=== PATIENT | female | born 1970 | race Native Hawaiian/Other Pacific Islander ===

== ENCOUNTER 2023-12-26 12:38 | Inpatient (IN) | payer OTHER ==
--- NOTE | 2023-12-26 13:42 | RAD REPORT ---
EXAM DESCRIPTION: RAD - Chest Single View - 12/26/2023 1:20 pm CLINICAL HISTORY: COPD;Cough;Dyspnea Chest pain. COMPARISON: <Comparisons> FINDINGS: Portable technique limits examination quality. Moderate pulmonary edema with small moderate left pleural effusion. The heart is increased in size si gnificantly. No displaced fractures. IMPRESSION: Moderate CHF versus volume overload suspected.
[2023-12-26] MEDS ORDERED: NA CHLORIDE 0.9% 500 ML ONE (14:12)
[2023-12-26] MEDS ORDERED: METHYLPREDNISOLONE 125 MG INJ ONE (14:12)
[2023-12-26] MEDS ORDERED: CEFTRIAXONE 1000 MG/VIAL ONE (14:12)
[2023-12-26 14:50] LABS: Absolute Lymphocytes (CBC) 0.9 K/uL (0.7-4.9); Absolute Monocytes 1.1 K/uL (0.1-1.3); Absolute Neutrophil 12.7 K/uL (1.8-8.0); Basophils % 0.2 % (0-1.3); Eosinophils % 0.1 % (0-4.4); Hematocrit 34.5 % (36.0-45.0); Hemoglobin 10.6 g/dL (12.0-15.0); Lymphocytes % 6.1 % (15.3-44.8); MCHC 30.8 g/dL (32.0-36.0); MCV 87.7 fL (80-100); Monocytes % 7.2 % (3.3-12.3); Neutrophils % 86.4 % (41.7-73.7); Nucleated RBC Absolute Count 0.2 (0-0); Nucleated Red Blood Cells % 1.1 % (0-0); Platelets 218 thou/uL (152-406); RBC Red Blood Cell Count 3.93 M/uL (3.86-4.86); Red Cell Distribution Width 18.8 % (12.1-15.2)
[2023-12-26] MEDS ORDERED: NA CHLORIDE 0.9% 250 ML ONE (14:51)
[2023-12-26] MEDS ORDERED: AZITHROMYCIN 500 MG INJ IVPB ONE (14:51)
--- NOTE | 2023-12-26 15:35 | ER ---
Nurse's Notes [facility] Name: Anna Claros Age: 53 yrs Sex: Female : 1970 Arrival Date: 12/26/2023 Time: 12:38 Bed 15 Private MD: Diagnosis: Heart failure, unspecified;Sepsis, unspecified organism Presentation: 12/25 12:54 Chief complaint: EMS states: difficulty breathing. Coronavirus screen: At this time, kj2 the client does not indicate any symptoms associated with coronavirus-19. Ebola Screen: No symptoms or risks identified at this time. Initial Sepsis Screen: Does the patient meet any 2 criteria? No. Patient's initial sepsis screen is negative. Initial Sepsis Screen: Does the patient have a suspected source of infection? No. Patient's initial sepsis screen is negative. Risk Assessment: Do you want to hurt yourself or someone else? Patient reports no desire to harm self or others. Onset of symptoms was December 26, 2023. Care prior to arrival: Medication(s) given: Albuterol Neb Atrovent Neb x 1. 12:54 Method Of Arrival: EMS: [facility] kj2 12:54 Acuity: FORREST 3 kj2 Triage Assessment: 12:59 General: Appears in no apparent distress. uncomfortable, Behavior is calm, cooperative. kj2 Pain: Complains of pain in headache Pain currently is 4 out of 10 on a pain scale. Neuro: Level of Consciousness is awake, alert, obeys commands, Oriented to person, place, situation. Cardiovascular: Capillary refill < 3 seconds. Respiratory: Reports shortness of breath at rest since for 2 weeks Airway Respiratory effort is labored. : Reports inability to void, since yesterday. Derm: skin on feet very dry and peeling. Historical: - Allergies: 13:05 No Known Allergies; kj2 - PMHx: 13:05 Chronic obstructive lung disease; Congestive heart failure; Atrial fibrillation; kj2 - Immunization history:: Adult Immunizations unknown. - Infectious Disease History:: Denies. - Social history:: Smoking status: Patient denies any tobacco usage or history of. - Code Status:: Full code. Screenin:06 [facility] ED Fall Risk Assessment (Adult) History of falling in the last 3 months, kj2 including since admission No falls in past 3 months (0 pts) Confusion or Disorientation No (0 pts) Intoxicated or Sedated No (0 pts) Impaired Gait Yes (1 pt) Mobility Assist Device Used Yes (1 pt) Altered Elimination Yes (1 pt) Score/Fall Risk Level 3 or more points = High Risk Maintained a safe environment, Educated pt \\T\\ family on fall prevention, incl call for assistance when getting out of bed, Hourly rounding (assess needs \\T\\ fall precautionary measures) done. Abuse screen: Denies threats or abuse. Denies injuries from another. Nutritional screening: No deficits noted. Tuberculosis screening: No symptoms or risk factors identified. Assessment: 13:17 General: see triage assessment. kj2 Vital Signs: 12:54 BP 124 / 112; Pulse 59; Resp 20; Temp 98.6; Pulse Ox 90% on 4 lpm NC; Weight 199.58 kg; kj2 12:58 BP 124 / 112; Pulse 59; Resp 20; Temp 98.6; Pulse Ox 90% on 4 lpm NC; Weight 199.58 kg; kj2 14:00 BP 93 / 45; Pulse 72; Resp 18; Pulse Ox 82% on NC; kj2 15:00 BP 101 / 55; Pulse 72; Resp 18; Pulse Ox 90% on 4 lpm NC; kj2 16:00 BP 92 / 64; Pulse 71; Resp 20; Pulse Ox 86% on 4 lpm NC; kj2 Juana Coma Score: 19:10 Eye Response: spontaneous(4). Motor Response: obeys commands(6). Verbal Response: rg5 oriented(5). Total: 15. ED Course: 12:39 Patient arrived in ED. ec2 12:39 Kash Sanchez MD is Attending Physician. ec2 12:41 Rosalba Terrell, GLENNA is Primary Nurse. kj2 12:58 Triage completed. kj2 13:08 Patient has correct armband on for positive identification. Bed in low position. Call kj2 light in reach. Provided Education on: call light, fall precautions. 13:09 Arm band placed on. kj2 13:09 No provider procedures requiring assistance completed. kj2 13:19 Initial lab(s) drawn, by me, sent to lab. Inserted saline lock: 20 gauge in right cm10 forearm, using aseptic technique. Flushed with 10 mL NS. 13:19 Basic Metabolic Panel Sent. cm10 13:19 CBC with Diff Sent. cm10 13:19 NT PRO-BNP Sent. cm10 13:19 Lactate w/ 2H reflex if indic. Sent. cm10 13:22 XRAY Chest (1 view) In Process Unspecified. EDMS 13:33 EKG done, by ED staff, reviewed by Kash Sanchez MD. kj2 15:34 Hetal Teran MD is Hospitalizing Provider. ec2 16:38 638 CM met with patient at bedside in ED exam room . Patient identified by name and ane . Demographic sheet not filled out to completion. CM obtained as much information as possible. Patient states she lives with her brother Chip Claros in a "mother in law type quarters". Patient reports using a walker and an assistive recliner that helps her stand. No HH, home oxygen or other medical services at this time. No MPOA in place at this tie. Sonido Claros' preferred discharge plan is to return home to live with her brother upon discharge. Patient reports Chip or his Mikey may be able to transport her home when she is discharged. CM team will continue to follow and coordinate care. 17:55 bariatric bed ordered,confirmation number [id number]. will be delivered to ER.. bd 19:11 Resting quietly. Awaiting bed assignment. rg5 19:11 Report given to GLENNA Julien. cm10 19:11 Client placed on continuous cardiac and pulse oximetry monitoring. NIBP monitoring rg5 applied. wage and salary administrator on. Pulse ox on. NIBP on. 19:11 Patient admitted, IV remains in place. intact, No redness/swelling at site. rg5 Administered Medications: 14:33 Drug: MethylPrednisoLONE IVP 125 mg IVP once Route: IVP; Site: right forearm; cm10 14:44 Follow up: Response: No adverse reaction cm10 14:33 Drug: Rocephin IV 1 grams IV at calculated rate once; Given slow IV push per pharmacy cm10 instructions Route: IV; Rate: calculated rate; Site: right forearm; 14:44 Follow up: Response: No adverse reaction; IV Status: Completed infusion; IV Intake: [id number] 16:17 Follow up: IV Status: Completed infusion; IV Intake: 10ml kj2 16:17 Follow up: Response: No adverse reaction kj2 14:33 Drug: NS 0.9% IV 500 ml IV at bolus once Route: IV; Rate: bolus; Site: right forearm; cm10 15:04 Follow up: Response: No adverse reaction; IV Status: Completed infusion; IV Intake: cm10 500ml 16:14 Follow up: IV Status: Completed infusion; IV Intake: 500ml kj2 15:04 Drug: AZITHromycin IVPB 500 mg IVPB once over 1 hrs; (mix in 250 mL NS) Route: IVPB; cm10 Infused Over: 1 hrs; Site: right forearm; 16:16 Follow up: Response: No adverse reaction; IV Status: Completed infusion; IV Intake: kj2 250ml 16:14 Drug: Furosemide IVP 40 mg IVP once; give over 2 minutes Route: IVP; Site: right kj2 forearm; 17:15 Follow up: Response: No adverse reaction kj2 Medication: 13:08 VIS not applicable for this client. kj2 Intake: 14:44 IV: 10ml; Total: 10ml. cm10 15:04 IV: 500ml; Total: 510ml. cm10 16:14 IV: 500ml; Total: 1010ml. kj2 16:16 IV: 250ml; Total: 1260ml. kj2 16:17 IV: 10ml; Total: 1270ml. kj2 Outcome: 15:35 Decision to Hospitalize by Provider. ec2 19:11 Admitted to ER Hold. Please see [facility] for further documentation. rg5 19:11 Condition: stable 12/26 01:54 Patient left the ED. rg5 Signatures: Dispatcher [employer] EDHuong Steven Clarissa, RN RN cm10 Kash Sanchez MD MD ec2 Wily Dillon RN RN rg5 Rosalba Terrell RN RN kj2 Sweta Gruber RN RN ane
--- NOTE | 2023-12-26 15:35 | EDPHYS ---
Physician Documentation [facility] Name: Anna Claros Age: 53 yrs Sex: Female : 1970 Arrival Date: 12/26/2023 Time: 12:38 Bed 15 Private MD: ED Physician Kash Sanchez HPI: 12/25 12:40 This 53 yrs old Female presents to ER via Unassigned with complaints of sob. ec2 12:40 Patient arrives today for evaluation of shortness of breath. Patient with worsening ec2 shortness of breath ongoing for multiple weeks. Patient with cough and congestion. Patient reports no fevers or chills, does have a history of CHF as well as COPD. Patient is on Lasix, states that she has not been taking any inhalers.. Historical: - Allergies: 13:05 No Known Allergies; kj2 - PMHx: 13:05 Chronic obstructive lung disease; Congestive heart failure; Atrial fibrillation; kj2 - Immunization history:: Adult Immunizations unknown. - Infectious Disease History:: Denies. - Social history:: Smoking status: Patient denies any tobacco usage or history of. - Code Status:: Full code. ROS: 12:40 Constitutional: as per hpi ec2 Exam: 12:40 Constitutional: GEN: NAD Head: atraumatic Eyes: EOMI Ears: External ears are ec2 normal. CV: regular rate, bilateral lower extremity edema with chronic skin changes noted. LUNGS: no respiratory distress ABD: non-distended SKIN: no evidence of rashes MSK: no evidence of trauma Vital Signs: 12:54 BP 124 / 112; Pulse 59; Resp 20; Temp 98.6; Pulse Ox 90% on 4 lpm NC; Weight 199.58 kg; kj2 12:58 BP 124 / 112; Pulse 59; Resp 20; Temp 98.6; Pulse Ox 90% on 4 lpm NC; Weight 199.58 kg; kj2 14:00 BP 93 / 45; Pulse 72; Resp 18; Pulse Ox 82% on NC; kj2 15:00 BP 101 / 55; Pulse 72; Resp 18; Pulse Ox 90% on 4 lpm NC; kj2 16:00 BP 92 / 64; Pulse 71; Resp 20; Pulse Ox 86% on 4 lpm NC; kj2 Juana Coma Score: 19:10 Eye Response: spontaneous(4). Motor Response: obeys commands(6). Verbal Response: rg5 oriented(5). Total: 15. MDM: 12:39 Patient medically screened. ec2 12:40 Data reviewed: vital signs. ED course: Patient arrives today for evaluation of ec2 shortness of breath. Examination remarkable for nontoxic individual with lower extremity edema. Will obtain lab work, EKG, chest x-ray. Differential include processes such as COPD exacerbation, CHF exacerbation, viral infection. 13:28 ED course: EKG independently reviewed and interpreted by me, shows atrial fibrillation, ec2 rate of 70, no acute ST segment elevations, right bundle branch block noted.. 15:24 ED course: Metabolic profile shows renal dysfunction with a creatinine of 2.66, ec2 markedly elevated BNP at 21,000.. 15:27 ED course: Patient did have some hypotensive blood pressures however seems to have ec2 improved with small fluid challenge, my concern ultimately is for volume overload and do not want to aggressively resuscitate her due to concern for potentiating worsening respiratory distress. Will admit for careful diuresis.. 15:34 ED course: Sepsis reassessment complete.. ec2 12/25 12:40 Order name: Basic Metabolic Panel; Complete Time: 15:24 ec2 12/25 12:40 Order name: CBC with Diff ec2 12/25 12:40 Order name: NT PRO-BNP; Complete Time: 15:24 ec2 12/25 12:42 Order name: Lactate w/ 2H reflex if indic.; Complete Time: 14:20 ec2 12/25 12:42 Order name: Blood Culture Adult (2) ec2 12/25 14:54 Order name: CBC Smear Scan EDMS 12/25 15:56 Order name: Ghost Lactate-NO COLLECT Timer EDMS 12/25 16:51 Order name: Lactate Sepsis 2 HR Follow-up EDMS 12/25 18:29 Order name: ABG Arterial Blood Gas EDMS 12/25 18:34 Order name: Ammonia EDMS 12/25 18:34 Order name: Liver (Hepatic) Function EDMS 12/25 18:43 Order name: CBC with Automated Diff EDMS 12/25 18:43 Order name: CBC with Automated Diff EDMS 12/25 18:43 Order name: Comprehensive Metabolic Panel EDMS 12/25 18:43 Order name: Comprehensive Metabolic Panel EDMS 12/25 18:43 Order name: Lactate w/ 2H reflex if indic. EDMS 12/25 18:43 Order name: Lactate w/ 2H reflex if indic. EDMS 12/25 18:43 Order name: Magnesium EDMS 12/25 18:43 Order name: Magnesium EDMS 12/25 18:43 Order name: NT PRO-BNP EDMS 12/25 18:43 Order name: NT PRO-BNP EDMS 12/25 18:43 Order name: Phosphorus EDMS 12/25 18:43 Order name: Phosphorus EDMS 12/25 18:43 Order name: Protime (+INR) EDMS 12/25 18:43 Order name: Protime (+INR) EDMS 12/25 18:43 Order name: PTT, Activated Partial Thromb EDMS 12/25 18:43 Order name: PTT, Activated Partial Thromb EDMS 12/25 18:43 Order name: T4 Free EDMS 12/25 18:43 Order name: T4 Free EDMS 12/25 18:43 Order name: Thyroid Stimulating Hormone EDMS 12/25 18:43 Order name: Thyroid Stimulating Hormone EDMS 12/25 18:43 Order name: Troponin High Sensitivity EDMS 12/25 18:43 Order name: Troponin High Sensitivity EDMS 12/25 18:43 Order name: Troponin High Sensitivity EDMS 12/25 12:40 Order name: XRAY Chest (1 view); Complete Time: 13:43 ec2 12/25 18:43 Order name: Echo with Doppler EDMS 12/25 18:43 Order name: CONS Physician Consult EDMS 12/25 18:44 Order name: CONS Physician Consult EDMS 12/25 12:40 Order name: Cardiac monitoring; Complete Time: 20:39 ec2 12/25 12:40 Order name: EKG - Nurse/Tech; Complete Time: 13:33 ec2 12/25 12:40 Order name: IV Saline Lock; Complete Time: 13:19 ec2 12/25 12:40 Order name: Labs collected and sent; Complete Time: 13:19 ec2 12/25 12:40 Order name: O2 Per Protocol; Complete Time: 13:19 ec2 12/25 12:40 Order name: O2 Sat Monitoring; Complete Time: 13:19 ec2 12/25 13:29 Order name: Labs - recollect needed: recollect green and purple top; Complete Time: bd 14:33 Administered Medications: 14:33 Drug: MethylPrednisoLONE IVP 125 mg IVP once Route: IVP; Site: right forearm; cm10 14:44 Follow up: Response: No adverse reaction cm10 14:33 Drug: Rocephin IV 1 grams IV at calculated rate once; Given slow IV push per pharmacy cm10 instructions Route: IV; Rate: calculated rate; Site: right forearm; 14:44 Follow up: Response: No adverse reaction; IV Status: Completed infusion; IV Intake: [id number] 16:17 Follow up: IV Status: Completed infusion; IV Intake: 10ml kj2 16:17 Follow up: Response: No adverse reaction kj2 14:33 Drug: NS 0.9% IV 500 ml IV at bolus once Route: IV; Rate: bolus; Site: right forearm; cm10 15:04 Follow up: Response: No adverse reaction; IV Status: Completed infusion; IV Intake: cm10 500ml 16:14 Follow up: IV Status: Completed infusion; IV Intake: 500ml kj2 15:04 Drug: AZITHromycin IVPB 500 mg IVPB once over 1 hrs; (mix in 250 mL NS) Route: IVPB; cm10 Infused Over: 1 hrs; Site: right forearm; 16:16 Follow up: Response: No adverse reaction; IV Status: Completed infusion; IV Intake: kj2 250ml 16:14 Drug: Furosemide IVP 40 mg IVP once; give over 2 minutes Route: IVP; Site: right kj2 forearm; 17:15 Follow up: Response: No adverse reaction kj2 Disposition Summary: 12/26/23 15:35 Hospitalization Ordered Notes: Hospitalization Status: Inpatient Admission ec2 Provider: Hetal Teran ec2 Condition: Stable ec2 Problem: new ec2 Symptoms: have improved ec2 Bed/Room Type: Standard ec2 Location: Intensive Care Unit(12/26/23 23:02) Room Assignment: 7-(12/26/23 23:02) Diagnosis - Heart failure, unspecified ec2 - Sepsis, unspecified organism ec2 Forms: - Medication Reconciliation Form ec2 - SBAR form ec2 - Leadership Thank You Letter ec2 Critical care time excluding procedures: 15:34 Critical care time: Bedside Care: 30 minutes, Consultation: 5 minutes. Total time: 35 ec2 minutes Signatures: Dispatcher [employer] EDHuong Steven Kimberly, RN RN kl Ericka Alcazar RN RN cm10 Kash Sanchez MD MD ec2 Rosalba Terrell RN RN kj2 Corrections: (The following items were deleted from the chart) 23:02 15:35 Telemetry/MedSurg (Inpatient) 2 23:02 15:35 ec2
[2023-12-26] MEDS ORDERED: FUROSEMIDE 40 MG/4 ML VIAL ONE (15:48)
[2023-12-26 16:36] LABS: Blood Morphology Comment NOTED (NOT SEEN); Platelet Estimate ADEQ; Polychromasia 1+; White Blood Cell Scan OK (OK)
[2023-12-26] MEDS ORDERED: ACETAMINOPHEN 500 MG TAB PO PRN (18:33)
[2023-12-26] MEDS ORDERED: ONDANSETRON 4 MG/2 ML VIAL IV PRN (18:33)
--- NOTE | 2023-12-26 18:42 | P.HP ---
Certification for Inpatient Patient admitted to: Inpatient With expected LOS: >2 Midnights Patient will require the following post-hospital care: None Practitioner: I am a practitioner with admitting privileges, knowledge of patient current condition, hospital course, and medical plan of care. Services: Services provided to patient in accordance with Admission requirements found in Title 42 Section 412.3 of the Code of Federal Regulations Patient History Date of Service: 12/26/23 Reason for admission: Altered mental status; History of Present Illness: Patient is a 53-year-old female who comes from home who states she has been sick for the last week. She has a history of atrial fibrillation and she has been on amiodarone. She is not really able to give me much of her history as she is very somnolent. Patient is morbidly obese and she lives at home with her son who is her main ortho tech. Patient states she gets around with a walker but oth er than that she is really not able to do much of anything for herself. She came into the ER hypotensive and very somnolent. ABGs were performed and she was hypercapnic. Patient was severely hypotensive with a blood pressure of 90s over 60s. Patient's feet are dusky as she has tinea pedis and possibly onychomycosis. Patient is very debilitated and I am not really sure how she is able to care for herself. At this time, patient will need to be admitted. Patient has hypoxic and I would anticipate she has severe pulmonary hypertension. She also has elevated troponin and BNP. Will try to diurese her but with her blood pressure being so low we will need to do this very gently. At this time, patient will be admitted to the hospital for further evaluation. Allergies No Known Allergies Allergy (Unverified 12/26/23 20:44) Home Medications: Amiodarone HCl [Cordarone Tab] 200 mg PO BID 12/27/23 Furosemide [Lasix] 40 mg PO BID 12/27/23 Levothyroxine [Synthroid] 50 mcg PO [id number] 12/27/23 Lisinopril [Zestril] 5 mg PO DAILY 12/27/23 Metoprolol Succinate [Toprol Xl] 25 mg PO DAILY 12/27/23 Potassium Chloride 20 meq PO DAILY 12/27/23 Sertraline [Zoloft] 100 mg PO DAILY 12/27/23 - Past Medical/Surgical History -: Hypothyroidism -: Hypertension -: Depression -: Atrial fibrillation Past Surgical History: Unable to obtain - Family History Father Family History: Reviewed- Non-Contributory - Social History Smoking Status: Former smoker Alcohol use: No CD- Drugs: No Review of Systems 10-point ROS is otherwise unremarkable Physical Examination - Vital Signs Temperature: 98 F Blood Pressure: 90/50 Pulse: 80 Respirations: 18 Pulse Ox (%): 95 - Physical Exam General: Alert, In no apparent distress, Confused, Obese HEENT: Atraumatic, PERRLA, Mucous membr. moist/pink, EOMI, Sclerae nonicteric Neck: Supple, 2+ carotid pulse no bruit, No LAD, Without JVD or thyroid abnormality Respiratory: Clear to auscultation bilaterally, Normal air movement Cardiovascular: Regular rate/rhythm, Normal S1 S2, Systolic murmur Gastrointestinal: Normal bowel sounds, Soft and benign, Non-distended, No tenderness Musculoskeletal: No clubbing, No swelling, No tenderness Integumentary: Skin breakdown, Skin lesion, Tenderness/swelling, Erythema Neurological: Normal tone, Sensation intact, Cranial nerves 3-12 intact, Normal affect, Abnormal gait, Abnormal speech, Abnormal strength Lymphatics: No axilla or inguinal lymphadenopathy - Studies Laboratory Data (last 24 hrs) 12/26/23 12/26/23 14:40 14:40 WBC 14.70 H Hgb 10.6 L Hct 34.5 L Plt Count 218 Sodium 133 L Potassium 4.0 BUN 36 H Creatinine 2.66 H Glucose 105 Assessment & Plan - Problems (Diagnosis) (1) Hypercapnic respiratory failure Current Visit: Yes Status: Acute (2) Acute CHF Current Visit: Yes Status: Acute (3) Atrial fibrillation Current Visit: Yes Status: Acute (4) Morbid obesity with BMI of 70 and over, adult Current Visit: Yes Status: Acute (5) Tinea pedis Current Visit: Yes Status: Acute (6) Onychomycosis Current Visit: Yes Status: Acute (7) Hypotensive episode Current Visit: Yes Status: Acute - Plan Plan: 1. Hypercapnic respiratory failure; continue with BiPAP support. Repeat ABGs. Pulmonary consultation. Patient appears to have obesity hypoventilation syndrome which is poorly controlled. With her BMI being greater than 70 and I believe this been uncontrolled for quite a while. She probably has pulmonary hypertension keeping her hypoxic. Continue with BiPAP support and will alternate with high flow as necessary. 2. Acute CHF exacerbation; most likely systolic dysfunction. Will get echocardiogram. Patient may be in cardiogenic shock. Will monitor her hemodynamics closely. Cardiology consultation. BNP is elevated and troponin is elevated. Patient denies any chest pain. She most likely has type II myocardial infarction as she had no EKG changes. Patient will be admitted for gentle diuresing as tolerated. Patient may need inotropic support. Consult cardiology and get their input. 3. Morbid obesity; patient weight is most likely on a compromise for long-term health. Her BMI is greater than 70. Mortality rate is very high. Unless substantial diet and exercise change as well as bariatric follow-up patient's long-term prognosis is very poor 4. Chronic kidney disease; patient with elevated creatinine. Will consult nephrology. Possible cardiorenal syndrome. Will need to increase perfusion at this time. Patient may need inotropic support. 5. Discharge Plan: Home Plan to discharge in: Greater than 2 days - Advance Directives Does patient have a Living Will: No Does patient have a Durable POA for Healthcare: No - Code Status/Comfort Care Code Status Assessed: Yes Code Status: Full Code Critical Care: Yes Time Spent Managing PTS Care (In Minutes): 50
[2023-12-26 19:17] LABS: Albumin 2.3 g/dL (3.4-5.0); Albumin/Globulin Ratio 0.4 (1.1-1.8); Bilirubin Direct 0.7 mg/dL (0-0.2); Bilirubin Indirect, Calculated 0.4 mg/dL (0.2-0.8); Bilirubin Total 1.1 mg/dL (0.2-1.0); Globulin 5.3 g/dL (2.3-3.5); Protein, Total 7.6 g/dL (6.4-8.2)
[2023-12-26] MEDS ORDERED: ALBUTEROL 2.5 MG/3 ML NEB SOL ONE (20:14)
[2023-12-26] MEDS ORDERED: IPRATROPIUM BROM 0.5MG/2.5ML ONE (20:14)
[2023-12-26] MEDS: ALBUTEROL 2.5 MG/3 ML NEB SOL NEB SCH (20:30)
[2023-12-26] MEDS: IPRATROPIUM BROM 0.5MG/2.5ML NEB SCH (20:30)
[2023-12-26 20:52] LABS: Arterial Blood Carboxyhemoglob 1.7 % (0-1.5); Blood Gas Oxyhemoglobin 86.3 % (94-97); Blood Gas THB 11.8 g/dl (12-18); Blood O2 Saturation 89.4 % (92-98.5)
[2023-12-26] MEDS: HEPARIN 5000 UNIT/ML 1 ML VIAL SQ SCH (21:00)
[2023-12-26] MEDS: Mupirocin NASAL 2 APPL/1 GM TUBE NAS SCH (21:00)
[2023-12-26] MEDS ORDERED: HEPARIN 5000 UNIT/ML 1 ML VIAL ONE (22:12)
[2023-12-27] MEDS ORDERED: ALBUTEROL 2.5 MG/3 ML NEB SOL ONE (01:25)
[2023-12-27] MEDS ORDERED: IPRATROPIUM BROM 0.5MG/2.5ML ONE (01:26)
[2023-12-27] MEDS: ALBUMIN HUMAN 25% 100 ML IV ONE ×2 (02:32→09:29)
[2023-12-27] MEDS: NOREPINEPHRINE BITARTRATE/D5W 4 MG/250 ML KIT IV ONE (03:55)
[2023-12-27] MEDS: NOREPINEPHRINE 4 MG in D5W 250 ML IV SCH (04:00)
[2023-12-27 05:05] LABS: Absolute Basophils 0.1 K/uL (0-0.5); Absolute Lymphocytes (CBC) 0.8 K/uL (0.7-4.9); Absolute Monocytes 0.7 K/uL (0.1-1.3); Absolute Neutrophil 16.6 K/uL (1.8-8.0); Basophils % 0.4 % (0-1.3); Hematocrit 38.7 % (36.0-45.0); Hemoglobin 11.5 g/dL (12.0-15.0); Lymphocytes % 4.3 % (15.3-44.8); MCH 26.3 pg (27.0-35.0); MCHC 29.7 g/dL (32.0-36.0); MCV 88.6 fL (80-100); MPV 9.4 fL (7.6-11.3); Monocytes % 4.1 % (3.3-12.3); Nucleated RBC Absolute Count 0.2 (0-0); Nucleated Red Blood Cells % 0.9 % (0-0); Platelets 223 thou/uL (152-406); RBC Red Blood Cell Count 4.36 M/uL (3.86-4.86)
[2023-12-27 05:08] LABS: PT Prothrombin Time 16.5 SECONDS (9.4-12.5); PTT, Activated Partial Thromb 30.9 SECONDS (24.3-36.9); Protime INR 1.49
[2023-12-27 05:11] LABS: Neutrophils % 91.2 % (41.7-73.7)
[2023-12-27 05:27] LABS: Albumin 2.7 g/dL (3.4-5.0); Albumin/Globulin Ratio 0.5 (1.1-1.8); Anion Gap 11.8 mEq/L (5.0-15.0); Bilirubin Total 0.9 mg/dL (0.2-1.0); Globulin 5.6 g/dL (2.3-3.5); Phosphorus 6.1 mg/dL (2.5-4.9); Potassium 4.8 mEq/L (3.5-5.1); Protein, Total 8.3 g/dL (6.4-8.2); Thyroid Stimulating Hormone 1.97 uIU/mL (0.358-3.740)
[2023-12-27] MEDS: AMIODARONE HCL 200 MG TAB PO SCH (09:29)
[2023-12-27] MEDS: HYDROCORTISONE SUC 100 MG INJ IV SCH ×2 (09:29→20:43)
[2023-12-27] MEDS: CEFTRIAXONE 1,000 MG in NA CHLORIDE 0.9% 50 ML IVPB SCH (09:29)
[2023-12-27] MEDS: LEVOTHYROXINE SOD 0.05 MG TABLET PO SCH (09:30)
[2023-12-27] MEDS: SERTRALINE HCL 100 MG TAB PO SCH (09:30)
[2023-12-27] MEDS: VANCOMYCIN 2 GM in NA CHLORIDE 0.9% 500 ML IVPB SCH (10:08)
[2023-12-27] MEDS: ALBUMIN HUMAN 25% 12.5 GM, FUROSEMIDE 100 MG in NA CHLORIDE 0.9% 40 ML IV SCH (11:34)
--- NOTE | 2023-12-27 12:11 | RAD REPORT ---
EXAM DESCRIPTION: US - Renal Ultrasound-Complete - 12/27/2023 10:38 am CLINICAL HISTORY: Abdominal pain COMPARISON: None FINDINGS: The right kidney measures 11 cm with a normal echotexture. A 3 centimeter hypoechoic struc ture midpole. The left kidney measures 10 cm with a normal echotexture. Hydronephrosis is not seen. A Garcia catheter is in a collapsed bladder. IMPRESSION: 3 centimeter hypoechoic structure mid pole right kidney it may represent a lobulat ion or mass. It is recommended that patient have a CT scan with and without IV contrast of the kidney s for further evaluation
--- NOTE | 2023-12-27 12:21 | P.CNS ---
Date of Consult: 12/27/23 Reason for Consult: Respiratory failure morbid obesity Chief Complaint: Altered mental status; History of Present Illness: Patient is 53 years of age nonverbal on nasal cannula oxygen H&P reviewed apparently was sick since last week has a history of A-fib patient was very somnolent she is obese lives at home with her son unable to do much admitted with hypotension ABG showed mild hypercapnia currently patient is stable still unresponsive on low doses of vasopressors and IV steroids in addition to renal failure Allergies No Known Allergies Allergy (Unverified 12/26/23 20:44) Home Medications: Amiodarone HCl [Cordarone Tab] 200 mg PO BID 12/27/23 Furosemide [Lasix] 40 mg PO BID 12/27/23 Levothyroxine [Synthroid] 50 mcg PO [id number] 12/27/23 Lisinopril [Zestril] 5 mg PO DAILY 12/27/23 Metoprolol Succinate [Toprol Xl] 25 mg PO DAILY 12/27/23 Potassium Chloride 20 meq PO DAILY 12/27/23 Sertraline [Zoloft] 100 mg PO DAILY 12/27/23 - Past Medical/Surgical History -: Hypothyroidism -: Hypertension -: Depression -: Atrial fibrillation - Family History Father Family History: Reviewed- Non-Contributory - Social History Alcohol use: No CD- Drugs: No Review of Systems is unable to be obtained Physical Examination Temp Pulse Resp BP Pulse Ox 98 F 84 16 97/60 91 12/27/23 08:08 12/27/23 10:45 12/27/23 10:45 12/27/23 10:45 12/27/23 10:45 General: Unresponsive Respiratory: Clear to auscultation bilaterally Cardiovascular: Normal S1 S2, Edema Gastrointestinal: Normal bowel sounds, Soft and benign Laboratory Data (last 24 hrs) 12/26/23 12/26/23 12/26/23 14:40 14:40 14:40 WBC 14.70 H Hgb 10.6 L Hct 34.5 L Plt Count 218 Sodium 133 L Potassium 4.0 BUN 36 H Creatinine 2.66 H Glucose 105 Total Bilirubin 1.1 H AST 38 H ALT 20 Alkaline Phosphatase 58 - Problems (1) Shock Current Visit: Yes Status: Acute Plan: Patient is hypoxic has hypotension with etiology of shock possible sepsis blood cultures have been pending patient was started on IV antibiotics and steroid pos sibly acute on chronic renal failure seen by nephrology continue with antibiotic until culture results are available phone is elevated I suspect is from the renal failure x-ray shows massive cardiomegaly serial blood gases mild hypercapnia (2) Renal mass Current Visit: Yes Status: Acute Plan: Patient has hypoechoic structure in her kidney 3 centimeter hypoechoic structure mid pole right kidney it may represent a lobulation or mass. It is recommended that patient have a CT scan with and without IV contrast of the kidneys for further evaluation
--- NOTE | 2023-12-27 13:36 | ECHO ---
HEIGHT: 5 ft 3 in WEIGHT: 414 lb 7.505 oz DATE OF STUDY: 12/27/[address]: Hetal Teran MD 2-DIMENSIONAL: YES M.MODE: YES DOPPLER: YES COLOR FLOW: YES TDS: YES PORTABLE: YES DEFINITY: BUBBLE STUDY: DIAGNOSIS: ACUTE CONGESTIVE HEART FAILURE CARDIAC HISTORY: CATHERIZATION: NO SURGERY: NO PROSTHETIC VALVE: NO PACEMAKER: NO MEASUREMENTS (cm) DIASTOLIC (NORMALS) SYSTOLIC (NORMALS) IVSd 1.1 (0.6-1.2) LA Diam 4.6 (1.9-4.0) LVEF 40-45% LVIDd 4.7 (3.5-5.7) LVIDs 2.9 (2.0-3.5) %FS LVPWd 1.2 (0.6-1.2) Ao Diam 3.0 (2.0-3.7) 2 DIMENSIONAL ASSESSMENT: RIGHT ATRIUM: NORMAL LEFT ATRIUM: NORMAL RIGHT VENTRICLE: MILD DILATED LEFT VENTRICLE: NORMAL TRICUSPID VALVE: MODERATE TRICUSPID REGURGITATION MITRAL VALVE: MILD MITRAL REGURGITATION PULMONIC VALVE: NORMAL AORTIC VALVE: NORMAL PERICARDIAL EFFUSION: NONE AORTIC ROOT: NORMAL LEFT VENTRICULAR WALL MOTION: MILD GLOBAL HYPOKINESIS DOPPLER/COLOR FLOW: GRADE III DIASTOLIC DYSFUNCTION COMMENTS: 1. LOW NORMAL LEFT VENTRICULAR SYSTOLIC FUCNTION, EJECTION FRACTION 45-50%, MILD GLOBAL HYPOKINESIS, TECHNICALLY DIFFICULT TO ACCESS WALL MOTIONS ACCURATELY 2. GRADE III DIASTOLIC DYSFUNCTION 3. ELEVATED FILLING PRESSURE (RIGHT ATRIUM 15-20 mmHg) 4. MODERATE PULMONARY HYPERTENSION (RIGHT VENTRICULAR SYSTOLIC PRESSURE 50-55 mmHg) 5. MODERATE TRICUSPID REGURGITATION 6. FLATTENED SEPTUM, WHICH INDICATE VOLUME OVERLOAD. TECHNOLOGIST: VICTOR M HARRIS / TYRONE WASHBURN
--- NOTE | 2023-12-27 14:42 | RAD REPORT ---
EXAM DESCRIPTION: RADChest Single View12/27/2023 2:07 pm CLINICAL HISTORY: PICC Placement COMPARISON: Chest Single View dated 12/26/2023 TECHNIQUE: Portable AP view of the chest. FINDINGS: Patient rotation somewhat limits evaluation. Left arm PICC has been placed with tip projec ting at the junction of left innominate vein and SVC. New/progressive central interstitial prominence and fluffy opacities on the left. Stable cardiomegaly. Stable retrocardiac opacification common now with suggestion of moderate layering effusion. No pneumothorax. The cardiomediastinal contours are o verall unchanged. IMPRESSION: Left arm PICC as above. New/progressive central interstitial prominence and fluffy opacities. Moderate layering left pleural effusion. Findings may relate to progressive edema or new left basilar airspace disease.
[2023-12-27] MEDS: MIDODRINE HCL 5 MG TABLET PO SCH (15:17)
--- NOTE | 2023-12-27 16:03 | CON ---
Date of Consultation: 12/27/2023 Reason For Consultation: Elevated BUN and creatinine, over volume. History Of Present Illness: This is a pleasant 53-year-old female with significant past medical hist ory of hypertension, hyperlipidemia, congestive heart failure, COPD, obstructive sleep apnea, hypothy roidism, depression, atrial fibrillation, the patient came to the hospital feeling sick for the last week, found to have atrial fibrillation and elevation in BUN and creatinine. For that reason, we hav e been consulted. The patient upon arrival to the hospital was altered mental status secondary to hy percapnic respiratory failure. The patient was placed on BiPAP. The patient more awake, oriented cu rrently. The patient had low blood pressure, blood pressure down to the 90. The patient admits that she has been taking ibuprofen 1000 mg daily for a few years. The patient had lab with her PCP Dr. Marizol huerta done couple of years ago with no mention for any kidney disease. The patient received diures is. The patient still received albumin, still has oliguria, patient on respiratory distress. Allergies: NO KNOWN DRUGS ALLERGY. Home Medications: Include: 1.Amiodarone. 2.Lasix. 3.Levothyroxine. 4.Lisinopril 5. 5.Metoprolol. 6.KCl. 7.Zoloft. Past Medical History: Include: 1.Hypothyroidism. 2.Hypertension. 3.Depression. 4.Atrial fibrillation. 5.Obstructive sleep apnea. Past Surgical History: Negative. Family History: Positive for hypertension. Social History: Ex-smoker. Denied alcohol. Denied drugs abuse. Review of Systems: Head and Neck: No red eye. No ear pain. GI: No nausea, no vomiting. : No polyuria or dysuria. No hematuria. 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 Respiratory: Has shortness of breath. Cardiovascular: Has orthopnea. Endocrine: No polydipsia. Skin: No rash. Neuro: Has neuropathy. Musculoskeletal: Generalized weakness. Physical Examination: General: When I saw the patient, the patient lying in bed. Vital Signs: Blood pressure 152/85, pulse of 95, afebrile, saturating 97 on nasal cannula. Chest: Crackles bilateral. Heart: S1, S2. Irregular. ABDOMEN: Morbidly obese. Could not appreciate any organomegaly. Extremity: Poor hygiene. Venous stasis change bilateral. Neurologic: Alert. No focality. Laboratory Data: Yesterday WBC 14.7, hemoglobin 10.6, and platelet 218. Sodium 133, potassium 4, bi carb 30, BUN 26, creatinine 2.6, GFR 21, calcium 9.2. TSH 1.9. Cortisol still pending. Troponin 40 5. Lactic acid 2.1. ABG; pH 7.26, CO2 65, O2 68. Urinalysis not done yet. BNP 29249. Current Medications: The patient on include: 1.Albumin. 2.Ceftriaxone. 3.Vancomycin. 4.Levophed. 5.Amiodarone. 6.Zoloft. 7.Levothyroxine. 8.Hydrocortisone 50 b.i.d. Assessment And Plan: 1.Acute kidney injury secondary to cardiorenal syndrome secondary to cardiogenic shock superimposed with MACIEJ secondary to nonsteroidal use, superimposed with СЕРГЕЙ inhibitor use. Oliguric over volume wi th respiratory distress. I had long discussion with the patient regarding the need to initiate renal replacement therapy at least for temporary. Given the over volume and anuric state, the patient on agreement. We will go ahead and proceed with temporary hemodialysis catheter and we will arrange for dialysis today. We will start the patient on midodrine to support the blood pressure. The patient is going to be dialyzed on low blood flow, low temperature, and we will follow up. 2.Hyponatremia dilutional secondary to cardiorenal syndrome. The patient placed on Lasix drip. We will follow up after dialysis. 3.Chronic kidney disease with acute kidney injury secondary to MACIEJ cardiorenal. I am going to send for PTH, renal ultrasound, and serology to evaluate the chronicity of the disease. The patient need to initiate on renal replacement therapy as the patient oliguric as above. 4.Congestive heart failure with exacerbation with over volume. We will start Lasix drip. We will s tart diuresis and ultrafiltration on dialysis. 5.Altered mental status, combined secondary to uremic encephalopathy status/hypercapnic respiratory failure recovered. We will follow up after dialysis. 6.Shock, multifactorial, secondary to cardiogenic shock/septic shock with lactic complicated with ac charlie kidney injury secondary to poor perfusion ATN. We will add midodrine. Continue Levophed. Johnny nue hydrocortisone. We will follow up with primary. Continue current antibiotic dose appropriate. 7.Atrial fibrillation as by Cardiology. 8.Congestive heart failure with exacerbation to rule out acute cardiac insult. We will follow up wi th primary. Time spent examining the patient [id number], reviewing data, lab and radiology, placing order, disc ussing the case with the patient, discussing the case with the seam steamer including hospitalist and nursing staff in ICU more than 75 minutes. EVELYN Voice ID: [id number] Report ID: [id number]
[2023-12-27] MEDS: HYDROCORTISONE SUC 100 MG INJ IV ONE (17:09)
--- NOTE | 2023-12-27 17:11 | P.CNS ---
Date of Consult: 12/27/23 Chief Complaint: Altered mental status; History of Present Illness: Patient is morbidly obese with PMH of HTN, Atrial fibrillation presented with worsening SOB for last week, also report chest pressure sensation, patient uses walker to get around the house only, she denies palpitations, no syncope. Allergies No Known Allergies Allergy (Unverified 12/26/23 20:44) Home medications list reviewed: Yes Home Medications: Amiodarone HCl [Cordarone Tab] 200 mg PO BID 12/27/23 Furosemide [Lasix] 40 mg PO BID 12/27/23 Levothyroxine [Synthroid] 50 mcg PO [id number] 12/27/23 Lisinopril [Zestril] 5 mg PO DAILY 12/27/23 Metoprolol Succinate [Toprol Xl] 25 mg PO DAILY 12/27/23 RX: Potassium Chloride 20 meq PO DAILY 12/27/23 Sertraline [Zoloft] 100 mg PO DAILY 12/27/23 - Past Medical/Surgical History -: Hypothyroidism -: Hypertension -: Depression -: Atrial fibrillation - Family History Father Family History: Reviewed- Non-Contributory - Social History Alcohol use: No CD- Drugs: No Review of Systems 10-point ROS is otherwise unremarkable Physical Examination Temp Pulse Resp BP Pulse Ox 97.9 F 76 20 86/60 L 92 12/27/23 16:00 12/27/23 16:15 12/27/23 16:15 12/27/23 16:15 12/27/23 16:15 General: Alert, In no apparent distress HEENT: Atraumatic, PERRLA, Mucous membr. moist/pink, EOMI, Sclerae nonicteric Neck: Supple, 2+ carotid pulse no bruit, No LAD, Without JVD or thyroid abnormality Respiratory: Diminished, Dull, Crackles/rales Cardiovascular: Edema, Irregular heart rate/rhythm Gastrointestinal: Normal bowel sounds, No tenderness Musculoskeletal: No tenderness Integumentary: No rashes Neurological: Normal gait, Normal speech, Normal tone, Normal affect Lymphatics: No axilla or inguinal lymphadenopathy Laboratory Data (last 24 hrs) 12/26/23 14:40 Total Bilirubin 1.1 H AST 38 H ALT 20 Alkaline Phosphatase 58 - Problems (1) Acute on chronic combined systolic (congestive) and diastolic (congestive) heart failure Current Visit: Yes Status: Acute Plan: agree with IV Lasix drip, monitor input and output and electrolytes. Patient echo shows elevated filling pressures. (2) Type 2 [place] (myocardial infarction) Current Visit: Yes Status: Acute Plan: mild troponin leak with no significant delta, most likely secondary to morbid obesity, sepsis no plan for further cardiac intervention due to morbid obesity and general poor condition. (3) Atrial fibrillation Current Visit: Yes Status: Acute Plan: currently rate controlled, continue Amiodarone 200 mg po BID Heparin for anticoagulation.
[2023-12-27] MEDS: LIDOCAINE 1% MPF 5 ML VIAL ONE (17:44)
--- NOTE | 2023-12-27 18:05 | P.OP ---
Preoperative diagnosis: Acute Renal Failure Postoperative diagnosis: Acute Renal Failure Primary procedure: Placement of RIGHT Subclavian Temporary Hemodialysis Catheter Secondary procedure: Microintroducer set Anesthesia: 1% Lidocaine Estimated blood loss: <10cc Specimen: none Findings: Dark, Non pulsatile blood return Complications: None Implants: Temporary Hemodialysis Catheter Transferred to: ICU Condition: Serious
--- NOTE | 2023-12-27 19:37 | RAD REPORT ---
EXAM DES[facility] 6:23 pm CLINICAL HISTORY: Right Subclavian HD cath COMPARISON: Chest Single View dated 12/27/2023; Chest Single View dated 12/26/2023 TECHNIQUE: Portable AP view of the chest. FINDINGS: Right subclavian CVC with tip terminating in the proximal right atrium. Left arm PICC unch anged in position. The lungs show stable central interstitial prominence and left central predominant patchy opacities with layering moderate left effusion. No pneumothorax or right effusion. The cardi omediastinal contours are unchanged with stable cardiomegaly. IMPRESSION: Satisfactory positioning of right subclavian CVC. Otherwise stable findings as above.
--- NOTE | 2023-12-27 20:42 | OP ---
Date of Procedure: 12/27/2023 Surgeon: Gideon Mata MD, Preoperative Diagnosis: Acute renal failure. Postoperative Diagnosis: Acute renal failure. Procedure: Placement of right subclavian temporary hemodialysis catheter using micropuncture introdu cer set. Anesthesia: 1% lidocaine without epinephrine. Estimated Blood Loss: Less than 10 cc. Specimen: None. Findings: Dark nonpulsatile blood return. Complications: None. Implant: Temporary hemodialysis catheter Apoloniakar subtype. Disposition: The patient remained in ICU in serious condition. Procedure In Detail: After informed consent was obtained, the patient was prepped and draped in the usual sterile fashion in the ICU bed. After adequate anesthesia was achieved, patient remained in st eep Trendelenburg position throughout the procedure. Using anatomic landmarks in the deltopectoral g roove, ultimately I cannulated the right subclavian vein on the first attempt using a micro introduce r needle. At this point, a micro wire was advanced at this point. I then made a hailey incision overl aston the insertion site and placed an introducer sheath, at this point. Dark red nonpulsatile blood returned. I performed exchange of the micro wire for standard wire, at this point, without incident or complication. The introducer sheath was then removed. At this point, I performed sequential dila tation using dilators, ultimately placing the catheter in the right subclavian vein without issue. A t this point, dark red nonpulsatile blood returned from both ports. I then andrey back dark red nonpul satile blood after removing the wire. The wire was coiled 2 times and I flushed with sterile saline until completely clear and packed with heparin super flush at this point, 2.5 cc per port. A suture was then used to secure to the chest wall and a sterile dressing was applied. The patient tolerated procedure without incident or complication, remained in the ICU in serious condition throughout the p rocedure. All counts were correct at the end of the case. TK/MODL Voice ID: [id number] Report ID: [id number]
[2023-12-28 05:37] LABS: Percent Reticulocyte Count 1.72 % (0.4-2.05); RBC Red Blood Cell Count 3.95 M/uL (3.86-4.86)
[2023-12-28 06:48] LABS: Anion Gap 9.5 mEq/L (5.0-15.0); Ferritin 55.3 ng/mL (8-388); Phosphorus 6.5 mg/dL (2.5-4.9); Potassium 4.5 mEq/L (3.5-5.1); Thyroid Stimulating Hormone 1.97 uIU/mL (0.358-3.740); Uric Acid 10.1 mg/dL (2.6-6.0)
[2023-12-28] MEDS: ALBUMIN HUMAN 25% 100 ML IV ONE (08:43)
[2023-12-28 09:34] LABS: Blood Gas Oxyhemoglobin 89.7 % (94-97); Blood O2 Saturation 92.2 % (92-98.5)
[2023-12-28 09:35] LABS: Arterial Blood Carboxyhemoglob 1.4 % (0-1.5); Blood Gas THB 11.8 g/dl (12-18)
[2023-12-28 10:34] LABS: Hepatitis B Core IgM Nonreactive (Nonreactive); Hepatitis B surface AG Interp. Nonreactive (Nonreactive)
[2023-12-28 10:36] LABS: Hepatitis B Surface Ab - Quant < 3.10 mIU/mL (<8.0)
[2023-12-28 10:37] LABS: HBsAG Nonreactive Report Report
[2023-12-28] MEDS: NOREPINEPHRINE 16 MG in D5W 250 ML IV SCH (11:11)
[2023-12-28] MEDS: FENTANYL CITR 100 MCG/2 ML IV ONE (11:34)
[2023-12-28] MEDS: DEXMEDETOMIDINE HCL 200 MCG in NA CHLORIDE 0.9% 98 ML IV SCH (11:58)
--- NOTE | 2023-12-28 13:02 | P.PN ---
Subjective Date of Service: 12/28/23 Chief Complaint: Altered mental status; Subjective: New changes (Patient is anuric, tachypnic and less repsonsive today) Review of Systems 10-point ROS is otherwise unremarkable Physical Examination - Vital Signs Temperature: 97.9 F Blood Pressure: 93/63 Pulse: 92 Respirations: 14 Pulse Ox (%): 91 - Physical Exam General: Moderate distress, Confused HEENT: Atraumatic, PERRLA, EOMI Neck: Supple, JVD not distended Respiratory: Diminished, Dull, Crackles/rales Cardiovascular: Regular rate/rhythm, Normal S1 S2, Edema Gastrointestinal: Normal bowel sounds, No tenderness Musculoskeletal: No tenderness Integumentary: No rashes Neurological: Normal speech, Normal tone, Normal affect Lymphatics: No axilla or inguinal lymphadenopathy - Studies Microbiology Data (last 24 hrs): 12/26/23 14:40 Blood - Blood Anaerobic Blood Culture - Final 12/26/23 14:32 Blood - Blood Anaerobic Blood Culture - Final Medications List Reviewed: Yes Assessment And Plan - Current Problems (Diagnosis) (1) Acute on chronic combined systolic (congestive) and diastolic (congestive) heart failure Current Visit: Yes Status: Acute Plan: Patient urine output is very low despite being on Lasix drip, line was placed to consider starting dialysis, patient BP is soft, might not be able to tolerate dialysis sessions and will require CRRT due to sofr BP, patient need aggressive diuresis due to significant volume overload, acidosis and hypercapnic respiratory failure monitor input and output and electrolytes. Patient echo shows elevated filling pressures. (2) Type 2 [place] (myocardial infarction) Current Visit: Yes Status: Acute Plan: mild troponin leak with no significant delta, most likely secondary to morbid obesity, sepsis no plan for further cardiac intervention due to morbid obesity and general poor condition. (3) Atrial fibrillation Current Visit: Yes Status: Acute Plan: currently rate controlled, continue Amiodarone 200 mg po BID Heparin for anticoagulation.
--- NOTE | 2023-12-28 13:35 | EKG ---
Test Date: 2023-12-26 Test Time: 13:26:21 Production Supervisor: ALVARO MEASUREMENT RESULTS: Intervals: Rate: 70 CT: QRSD: 134 QT: 370 QTc: 399 Bivalve: P: CT: QRS: 145 T: -68 INTERPRETIVE STATEMENTS: Atrial fibrillation Right bundle branch block Septal infarct, age undetermined Abnormal ECG No previous ECG available for comparison Electronically Signed On 12-28-23 13:29:17 CDT by Melecio Joseph
[2023-12-28] MEDS: LIDOCAINE 1% 20 ML MDV ONE (16:45)
[2023-12-28] MEDS: SODIUM BICARB 50 MEQ/50ML VIAL IV ONE (16:45)
--- NOTE | 2023-12-28 16:45 | P.PN ---
Date of Service: 12/27/23 Subjective Pt is still lethargic; seen by nephrology and wanting to diurese and also will need to start dialysis Physical Examination - Vital Signs reviewed - Physical Exam General: Alert, In no apparent distress, Confused, Obese Respiratory: basilar crackles Cardiovascular: Regular rate/rhythm, Normal S1 S2, Systolic murmur Gastrointestinal: Normal bowel sounds, Soft and benign, Non-distended, No tenderness Musculoskeletal: No clubbing, No swelling, No tenderness Integumentary: Skin breakdown, Skin lesion, Tenderness/swelling, Erythema Neurological: no focal deficits Assessment & Plan - Problems (Diagnosis) (1) Hypercapnic respiratory failure along with metabolic acidosis Current Visit: Yes Status: Acute (2) Acute CHF Current Visit: Yes Status: Acute (3) Atrial fibrillation Current Visit: Yes Status: Acute (4) Morbid obesity with BMI of 70 and over, adult Current Visit: Yes Status: Acute (5) Cardiorenal syndrome/cardiogenic shock Current Visit: Yes Status: Acute (6) Tinea pedis/onychomycosis Current Visit: Yes Status: Acute (7) ESRD/oligouria Current Visit: Yes Status: Acute - Plan Plan: 1. Hypercapnic respiratory failure along with metabolic acidosis; continue with BiPAP support. Repeat ABGs. Pulmonary consultation. Patient appears to have obesity hypoventilation syndrome which is poorly controlled. With her BMI being greater than 70 and I believe this been uncontrolled for quite a while. She probably has pulmonary hypertension keeping her hypoxic. Continue with BiPAP farris pport and will alternate with high flow as necessary. 2. Acute CHF exacerbation; combined diastolic and systolic dysfunction; cardiogenic shock with cardiorenal syndrome. Will get echocardiogram. Patient will continue with diuresing and dialysis. Will monitor her hemodynamics closely. Cardiology consultation. BNP is elevated and troponin is elevated. Patient denies any chest pain. She most likely has type II myocardial infarction as she had no EKG changes. Patient will be admitted for gentle diuresing as tolerated. Patient may need inotropic support. 3. Morbid obesity; patient weight is most likely on a compromise for long-term health. Her BMI is greater than 70. Mortality rate is very high. Unless substantial change of clinical status along with a bariatric follow-up patient's long-term prognosis is very poor 4. End stage renal disease; patient with elevated creatinine. Appreciate nephrology consult. Cardiorenal syndrome. Will need to increase perfusion at this time. Patient may need inotropic support. Monitor lactic acid level 5. Tinea pedis/onychomycosis; antifungal rx Discharge Plan: Home Plan to discharge in: Greater than 2 days - Advance Directives Does patient have a Living Will: No Does patient have a Durable POA for Healthcare: No - Code Status/Comfort Care Code Status Assessed: Yes Code Status: Full Code Critical Care: Yes Time Spent Managing PTS Care (In Minutes): 50
[2023-12-28 19:18] LABS: Specific Gravity 1.017 (1.005-1.030); Sqamous Epithelial <5 /HPF (None Seen); Urine Bacteria <20 /HPF (<20); Urine Bilirubin 1+ (Negative); Urine Blood 3+ (OVER) (Negative); Urine Clarity Extremely Turbid (Clear); Urine Color Dark-Yellow (Yellow); Urine Crystals Unidentified Few /HPF (None Seen); Urine Culture Reflex Order REFLEXED; Urine Glucose NEGATIVE (Negative); Urine Ketones NEGATIVE (Negative); Urine Micro Reflex YN NO BILL MICROSCOPIC; Urine Mucus Slight /HPF (None Seen); Urine Nitrite NEGATIVE (Negative); Urine Protein 2+ (Negative); Urine RBC >50 /HPF (None Seen); Urine Urobilinogen 1+ (Normal); Urine WBC >50 /HPF (<5)
[2023-12-28 19:22] LABS: UR PROTEIN 196.1 mg/dL (<11.9); Urine Protein/Creatinine Ratio 0.88 ratio (<0.15)
--- NOTE | 2023-12-28 19:32 | P.PN ---
Date of Service: 12/28/23 Subjective Patient remains hypotensive on Levophed. Status post hemodialysis with 1.5 L removed. Patient still remains acidotic. Most likely combination of respiratory and metabolic acidosis with poor compensation. Echocardiogram reviewed. Appreciate consultants assistance in patient's care. Physical Examination - Vital Signs reviewed - Physical Exam General: Alert, In no apparent distress, Confused, Obese Respiratory: basilar crackles Cardiovascular: Regular rate/rhythm, Normal S1 S2, Systolic murmur Gastrointestinal: Normal bowel sounds, Soft and benign, Non-distended, No tenderness Musculoskeletal: No clubbing, No swelling, No tenderness Integumentary: Skin breakdown, Skin lesion, Tenderness/swelling, Erythema Neurological: no focal deficits Assessment & Plan - Problems (Diagnosis) (1) Hypercapnic respiratory failure along with metabolic acidosis Current Visit: Yes Status: Acute (2) Acute CHF Current Visit: Yes Status: Acute (3) Atrial fibrillation Current Visit: Yes Status: Acute (4) Morbid obesity with BMI of 70 and over, adult Current Visit: Yes Status: Acute (5) Cardiorenal syndrome/cardiogenic shock Current Visit: Yes Status: Acute (6) Tinea pedis/onychomycosis Current Visit: Yes Status: Acute (7) ESRD/oligouria Current Visit: Yes Status: Acute - Plan Plan: 1. Pulmonary: Hypercapnic respiratory failure along with poorly compensatory metabolic alkalosis along with metabolic acidosis; continue with BiPAP support. Repeat ABGs. Pulmonary consultation. Patient appears to have obesity hypoventilation syndrome with secondary pulmonary hypertension. Continue with BiPAP support. 2. Cardiology: Cardiogenic shock with cardiorenal syndrome. Will get echocardiogram. Continue with Levophed. Patient will continue with diuresing and dialysis per nephrology. Will monitor her hemodynamics closely. Cardiology and nephrology consultation appreciated. BNP is elevated and troponin is elevated. Patient denies any chest pain. She most likely has type II myocardial infarction as she had no EKG changes. Patient will be admitted for gentle diuresing as tolerated. Patient may need inotropic support. Patient with atrial fibrillation; rate controlled. Continue with anticoagulation. 3. Endocrine: Morbid obesity; patient weight is most likely on a compromise for long-term health. Her BMI is greater than 70. Mortality rate is very high. Unless substantial change of clinical status along with a bariatric follow-up patient's long-term prognosis is very poor. Check thyroid studies. Patient would benefit from GLP-1 agonist. 4. Nephrology: End stage renal disease; patient with elevated creatinine. Appreciate nephrology consult. Cardiorenal syndrome. Will need to increase perfusion at this time. Patient may need inotropic support. Monitor lactic acid level 5. Integumentary: Tinea pedis/onychomycosis; antifungal rx 6. Neurology: Patient with altered mental status. Most likely related to hypercapnia. Patient's very lethargic and confused at time. Will try to get CT of the head to reevaluate. Continue monitoring neurologic status 7. GI; patient with fatty liver disease; monitor liver function testing 8. Hematology; Patient leukocytosis and anemia of chronic disease; check white blood cell count and iron studies Discharge Plan: Home Plan to discharge in: Greater than 2 days - Advance Directives Does patient have a Living Will: No Does patient have a Durable POA for Healthcare: No - Code Status/Comfort Care Code Status Assessed: Yes Code Status: Full Code Critical Care: Yes Time Spent Managing PTS Care (In Minutes): 50
--- NOTE | 2023-12-28 19:35 | PN ---
Date of Progress Note: 12/28/2023 Subjective: The patient is started on dialysis today. She continued to be anuric, continued to rhianna in on pressor support to transfer for higher level of care. Objective: Vital signs: Temperature 97.9, pulse rate 92, blood pressure 93/63. General: The patient is lethargic, morbidly obese, on BiPAP. Neck: Supple. No elevated JVD. Evert catheter. Heart: Regular rate and rhythm. Normal S1, S2. Chest: Decreased air entry bilaterally. Abdomen: Soft, nontender. Has a Garcia catheter. Extremities: No edema. Chronic lower extremity skin changes. Laboratory Data: White count 18.2, hemoglobin 11.5, sodium 133, potassium 4.5, BUN 50, creatinine 3. 56. Assessment And Plan: 1.Acute on chronic kidney disease. The patient is anuric, started on dialysis as she had first dial ysis on December 27. Next dialysis is tomorrow. Avoid NSAID and contrast. Renal dose medication. 2.Chronic kidney disease, might be due to hypertension and MACIEJ. 3.Chronic respiratory failure. Continue BiPAP support, dialysis with UF as tolerated. 4.Hyponatremia, which is delusional, we will correct with dialysis. 5.Atrial fibrillation, currently rate controlled. 6.Hypotension, possibly due to cardiogenic versus septic shock. Cortisol level more than 20. Johnny nue Levophed support at this time. LORAINE/MAIK Voice ID: [id number] Report ID: [id number]
[2023-12-28] MEDS: VANCOMYCIN 1 GM in NA CHLORIDE 0.9% 250 ML IVPB SCH (19:42)
[2023-12-28 21:20] VITALS: TEMP 97
[2023-12-28 21:47] VITALS: O2SAT 95
[2023-12-28 21:54] VITALS: BMI 73.7
[2023-12-28] MEDS ORDERED: VANCOMYCIN 1 GM in NA CHLORIDE 0.9% 250 ML IVPB SCH (22:00)
[2023-12-28 22:22] VITALS: BP 113/71
[2023-12-29 00:10] LABS: Rheumatoid Factor NEG (NEG)
[2023-12-30] MEDS ORDERED: VANCOMYCIN 1 GM in NA CHLORIDE 0.9% 250 ML IVPB SCH (09:00)
[2024-01-01 12:41] LABS: Complement C3 108 mg/dL (83-193)
[2024-01-02 21:54] LABS: Abnormal Protein Band 1 REPORT; Albumin, (SPE) 3.2 g/dL (3.8-4.8); Alpha-1-Globulins 0.5 g/dL (0.2-0.3); Alpha-2-Globulins 0.8 g/dL (0.5-0.9); Beta 1 Globulin 0.4 g/dL (0.4-0.6); INTERPRETATION REPORT; Total Protein 7.5 g/dL (6.1-8.1)
[2024-01-05 01:32] LABS: C-ANCA Anti-Proteinase 3 <1.0 AI (<1.0); P-ANCA Anti-Myeloperoxidase Ab <1.0 AI (<1.0)
[2024-01-07 07:54] LABS: Anti-Double Strand DNA Antibod 2 IU/mL (<=4)
[2024-01-09 05:46] LABS: Anti-Nuclear Antibody Screen Positive (Negative)
[2024-01-09 06:15] LABS: Anti-Nuclear Antibody Pattern REPORT; Anti-Nuclear Antibody Titer 1:40 (Negative)
--- NOTE | 2024-01-17 02:22 | P.DS ---
Discharge Date: 12/28/23 Disposition: TRANSFER TO [facility] Discharge Condition: SERIOUS Reason for Admission: Altered mental status; - Problems (1) Hypercapnic respiratory failure Status: Acute (2) Acute CHF Status: Acute (3) Atrial fibrillation Status: Acute (4) Morbid obesity with BMI of 70 and over, adult Status: Acute (5) Tinea pedis Status: Acute (6) Onychomycosis Status: Acute (7) Hypotensive episode Status: Acute Brief History of Present Illness: Patient is a 53-year-old female who comes from home who states she has been sick for the last week. She has a history of atrial fibrillation and she has been on amiodarone. She is not really able to give me much of her history as she is very somnolent. Patient is morbidly obese and she lives at home with her son who is her main provider scribe. Patient states she gets around with a walker but other than that she is really not able to do much of anything for herself. She came into the ER hypotensive and very somnolent. ABGs were performed and she was hypercapnic. Patient was severely hypotensive with a blood pressure of 90s over 60s. Patient's feet are dusky as she has tinea pedis and possibly onychomycosis. Patient is very debilitated and I am not really sure how she is able to care for herself. At this time, patient will need to be admitted. Patient has hypoxic and I would anticipate she has severe pulmonary hypertension. She also has elevated troponin and BNP. Will try to diurese her but with her blood pressure being so low we will need to do this very gently. At this time, patient will be admitted to the hospital for further evaluation. Hospital Course: Patient will be transfer to [facility] for CRRT. Remains on Levophed and will continue with vasopressor support. Hemodialysis per nephrology consultation. Patient will be transferred when we have bed available. Vital Signs/Physical Exam: Temp Pulse Resp BP Pulse Ox 97.0 F 70 17 113/71 95 12/28/23 20:00 12/28/23 22:00 12/28/23 22:00 12/28/23 22:00 12/28/23 22:00 General: Alert, In no apparent distress, Oriented x3 Laboratory Data at Discharge: WBC 18.20 thou/uL (4.3-10.9) H 12/27/23 04:49 Hgb 11.5 g/dL (12.0-15.0) L D 12/27/23 04:49 Hct 38.7 % (36.0-45.0) 12/27/23 04:49 Plt Count 223 thou/uL (152-406) 12/27/23 04:49 PT 16.5 SECONDS (9.4-12.5) H 12/27/23 04:49 INR 1.49 12/27/23 04:49 APTT 30.9 SECONDS (24.3-36.9) 12/27/23 04:49 Sodium 133 mEq/L (136-145) L 12/28/23 05:07 Potassium 4.5 mEq/L (3.5-5.1) 12/28/23 05:07 BUN 50 mg/dL (7-18) H 12/28/23 05:07 Creatinine 3.56 mg/dL (0.55-1.02) H 12/28/23 05:07 Glucose 135 mg/dL (74-106) H 12/28/23 05:07 Uric Acid 10.1 mg/dL (2.6-6.0) H 12/28/23 05:07 Phosphorus 6.5 mg/dL (2.5-4.9) H 12/28/23 05:07 Magnesium 2.0 mg/dL (1.6-2.4) 12/27/23 04:49 Total Bilirubin 0.9 mg/dL (0.2-1.0) 12/27/23 04:49 AST 51 U/L (15-37) H 12/27/23 04:49 ALT 28 U/L (13-56) 12/27/23 04:49 Alkaline Phosphatase 60 U/L (45-117) 12/27/23 04:49 Home Medications: Amiodarone HCl [Cordarone Tab] 200 mg PO BID 12/27/23 Furosemide [Lasix] 40 mg PO BID 12/27/23 Levothyroxine [Synthroid] 50 mcg PO [id number] 12/27/23 Lisinopril [Zestril] 5 mg PO DAILY 12/27/23 Metoprolol Succinate [Toprol Xl] 25 mg PO DAILY 12/27/23 Potassium Chloride 20 meq PO DAILY 12/27/23 Sertraline [Zoloft] 100 mg PO DAILY 12/27/23 Physician Discharge Instructions: Transfer to [facility] Diet: Renal Activity: Fall precautions Followup: SHEA VALDIVIA [Primary Care Provider] - Time spent managing pt's care (in minutes): 35
== END 2023-12-28 22:20 | disposition short-term general hospital (02) | DRG 871 ==
LOC: ER 12:38 → ERHOLD 18:33 → 3RD-ICU 12-27 01:24
PROVIDERS: ADMIT Hospitalist; ATTEND Hospitalist
PROC: 4A033R1 Measurement of Arterial Saturation, Peripheral, Percutaneous Approach (ICD-10-PCS; principal; 2023-12-26)
PROC: 5A09457 Assistance with Respiratory Ventilation, 24-96 Consecutive Hours, Continuous Positive Airway Pressure (ICD-10-PCS; 2023-12-26)
PROC: 0T9B70Z Drainage of Bladder with Drainage Device, Via Natural or Artificial Opening (ICD-10-PCS; 2023-12-26)
PROC: 5A1D70Z Performance of Urinary Filtration, Intermittent, Less than 6 Hours Per Day (ICD-10-PCS; 2023-12-26)
PROC: 3E043XZ Introduction of Vasopressor into Central Vein, Percutaneous Approach (ICD-10-PCS; 2023-12-26)
PROC: 02HV33Z Insertion of Infusion Device into Superior Vena Cava, Percutaneous Approach (ICD-10-PCS; 2023-12-27)
PROC: 05H533Z Insertion of Infusion Device into Right Subclavian Vein, Percutaneous Approach (ICD-10-PCS; 2023-12-27)
DX: A41.9 Sepsis, unspecified organism (principal); I21.A1 Myocardial infarction type 2; I50.43 Acute on chronic combined systolic (congestive) and diastolic (congestive) heart failure; J96.02 Acute respiratory failure with hypercapnia; R57.0 Cardiogenic shock; N17.0 Acute kidney failure with tubular necrosis; R65.21 Severe sepsis with septic shock; N18.6 End stage renal disease; Z68.45 Body mass index [BMI] 70 or greater, adult; E66.2 Morbid (severe) obesity with alveolar hypoventilation; E87.1 Hypo-osmolality and hyponatremia; E87.20 Acidosis, unspecified; I13.2 Hypertensive heart and chronic kidney disease with heart failure and with stage 5 chronic kidney disease, or end stage renal disease; I95.9 Hypotension, unspecified; E03.9 Hypothyroidism, unspecified; I48.91 Unspecified atrial fibrillation; I45.10 Unspecified right bundle-branch block; J44.9 Chronic obstructive pulmonary disease, unspecified; N28.89 Other specified disorders of kidney and ureter; I27.20 Pulmonary hypertension, unspecified; B35.3 Tinea pedis; B35.1 Tinea unguium; Z99.2 Dependence on renal dialysis; Z79.890 Hormone replacement therapy; Z79.899 Other long term (current) drug therapy; Z87.891 Personal history of nicotine dependence; Z91.158 Patient's noncompliance with renal dialysis for other reason
CPT/HCPCS: 36415; 36569; 36600; 71045; 76770; 80048; 80053; 80069; 80076; 80202; 81001; 82140; 82533; 82550; 82570; 82607; 82728; 82805; 83520; 83540; 83605; 83735; 83880; 83970; 84100; 84156; 84165; 84439; 84443; 84466; 84484; 84550; 85025; 85044; 85610; 85730; 86021; 86038; 86160; 86225; 86430; 86705; 86706; 86803; 87040; 87086; 87088; 87340; 90935; 93005; 93306; 94640; 94660; 96361; 96365; 96375; 99285; J0696; J1644; J1720; J1940; J2001; J2919; J3010; J7040; J7050; J7060; J7613; J7644; P9047